=== PATIENT | female | born 1990 | race African-American/Black ===

== ENCOUNTER 2019-11-13 10:48 | Emergency (ER) | payer SELFPAY ==
--- NOTE | 2019-11-13 11:21 | ER Document Report ---
ED Medical Screen (RME) - General Stated Complaint: VAGINAL BLEEDING Time Seen by Provider: 11/13/19 11:16 Mode of Arrival: Ambulatory Information source: Patient Notes: Patient presents complaining of irregular vaginal bleeding for the past 2 weeks with lower pelvic cramping. Patient states the pain will occasionally radiate around to her back. Patient denies any urinary symptoms. Patient denies any nausea vomiting or diarrhea. Patient denies any lightheadedness. Patient is uncertain if she may be . Patient does report recent unprotected intercourse with a new partner. I have greeted and performed a rapid initial assessment of this patient. A comprehensive ED assessment and evaluation of the patient, analysis of test results and completion of the medical decision making process will be conducted by additional ED providers. Physical Exam - Vital signs Vitals: Temp Pulse Resp BP Pulse Ox 97.6 F 80 16 126/70 H 99 11/13/19 10:57 11/13/19 10:57 11/13/19 10:57 11/13/19 10:57 11/13/19 10:57 - General General appearance: Appears well, Alert Notes: Lower pelvic tenderness Course - Vital Signs Vital signs: Temp Pulse Resp BP Pulse Ox 97.6 F 80 16 126/70 H 99 11/13/19 10:57 11/13/19 10:57 11/13/19 10:57 11/13/19 10:57 11/13/19 10:57
[2019-11-13 11:45] LABS: ABSOLUTE BASOPHILS # (AUTO) 0.1 10^3/uL (0.0-0.2); ABSOLUTE EOSINOPHILS # (AUTO) 0.6 10^3/uL (0.0-0.6); ABSOLUTE MONOCYTES (AUTO) 0.4 10^3/uL (0.1-1.4); ABSOLUTE NEUT (AUTO) 3.4 10^3/uL (1.7-8.2); BASOPHILS % (AUTO) 0.9 % (0-2); EOSINOPHILS % (AUTO) 9.4 % (0-6); HEMATOCRIT 40.1 % (36.0-47.0); HEMOGLOBIN 13.3 g/dL (12.0-15.5); LYMPHOCYTES % (AUTO) 30.7 % (13-45); MEAN CORPUSCULAR HEMOGLOBIN 26.9 pg (27.0-33.4); MEAN CORPUSCULAR HGB CONC 33.2 g/dL (32.0-36.0); MEAN CORPUSCULAR VOLUME 81 fl (80-97); PLATELET COUNT 205 10^3/uL (150-450); RED BLOOD COUNT 4.94 10^6/uL (3.72-5.28); TOTAL CELLS COUNTED % (AUTO) 100 %; WHITE BLOOD COUNT 6.4 10^3/uL (4.0-10.5)
[2019-11-13 12:07] LABS: ALBUMIN 4.3 g/dL (3.5-5.0); ALKALINE PHOSPHATASE 64 U/L (38-126); ANION GAP 7 (5-19); ASPARTATE AMINO TRANSFERASE 19 U/L (14-36); BILIRUBIN,DIRECT 0.3 mg/dL (0.0-0.4); BILIRUBIN,TOTAL 0.7 mg/dL (0.2-1.3); BLOOD UREA NITROGEN 9 mg/dL (7-20); CALCIUM 9.3 mg/dL (8.4-10.2); CARBON DIOXIDE 26 mmol/L (22-30); CHLORIDE 106 mmol/L (98-107); GLUCOSE 119 mg/dL (75-110); POTASSIUM 4.1 mmol/L (3.6-5.0); TOTAL PROTEIN 7.6 g/dL (6.3-8.2)
--- NOTE | 2019-11-13 13:50 | ER Document Report ---
ED General - General Chief Complaint: Vaginal Bleeding Stated Complaint: VAGINAL BLEEDING Time Seen by Provider: 11/13/19 11:16 Primary Care Provider: KEVIN ALCANTARA [Primary Care Provider] - Follow up as needed Mode of Arrival: Ambulatory - [facility] Notes: Chief complaint: Pelvic cramping and heavy menses. History of present illness: 28-year-old 1 para 1 complaining of irregular vaginal bleeding for the past 2 weeks with lower pelvic cramping. Patient states the pain will occasionally radiate around to her back. Patient denies any urinary symptoms. Patient denies any nausea vomiting or diarrhea. Patient denies any lightheadedness. Patient is uncertain if she may be . Patient does report recent unprotected intercourse with a new partner. No contraception. No other regular medications. No primary care physician. No known allergies. - Related Data Allergies/Adverse Reactions: No Known Drug Allergies Allergy (Verified 11/13/19 11:21) Past Medical History - General Information source: Patient - Social History Smoking Status: Current Some Day Smoker Chew tobacco use (# tins/day): No Frequency of alcohol use: None Drug Abuse: None Family History: Reviewed & Not Pertinent - Medical History Medical History: Negative Surgical Hx: Negative Review of Systems - Review of Systems Notes: Constitutional: Negative for fever. HENT: Negative for sore throat. Eyes: Negative for visual changes. Cardiovascular: Negative for chest pain. Respiratory: Negative for shortness of breath. Gastrointestinal: Negative for abdominal pain, vomiting or diarrhea. Genitourinary: As per HPI. Musculoskeletal: Negative for back pain. Skin: Negative for rash. Neurological: Negative for headaches, weakness or numbness. 10 point ROS negative except as marked above and in HPI. Physical Exam - Vital signs Vitals: Temp Pulse Resp BP Pulse Ox 97.6 F 80 16 126/70 H 99 11/13/19 10:57 11/13/19 10:57 11/13/19 10:57 11/13/19 10:57 11/13/19 10:57 - Notes Notes: GENERAL: Well-developed well-nourished appearing in no acute distress. SKIN: Good turgor no rashes. HEAD: Normocephalic atraumatic. EYES: PERRLA. EOMI. Conjunctivae and sclerae clear. EARS: CANALS AND TMS CLEAR. NOSE: CLEAR. MOUTH: Moist mucosa. Good dentition. No stridor or edema. No drooling. NECK: Supple. No masses or thyromegaly. No adenopathy. Carotids 2+ without bruits. No JVD. BACK: Symmetrical without tenderness. CHEST: Respirations unlabored. Breath sounds clear and symmetrical. HEART: Regular rhythm. No murmur gallop or rub. ABDOMEN: Soft nontender without masses, organomegaly or rebound. Bowel sounds normally active. No bruits. PELVIC: Normal external genitalia and hair distribution. Small amount of blood without clots in the vaginal vault. Cervix is parous and closed without lesions. Mild diffuse tenderness on bimanual exam with no enlargement of the uterus or adnexal masses appreciated. EXTREMITIES: No edema. No calf tenderness. Cap refill less than 1.5 seconds. Dorsalis pedis and posterior tibial pulses 3+ and symmetrical. NEUROLOGICAL: GCS 15. Alert and oriented x3. Normal gait. Fluent speech. Cranial nerves II through XII intact. Sensorimotor and cerebellar normal. N ormal tone. PSYCHIATRIC: Appropriate affect. Course - Vital Signs Vital signs: Temp Pulse Resp BP Pulse Ox 97.6 F 80 16 126/70 H 99 11/13/19 10:57 11/13/19 10:57 11/13/19 10:57 11/13/19 10:57 11/13/19 10:57 - Laboratory Result Diagrams: 11/13/19 11:32 11/13/19 11:32 Laboratory results interpreted by me: 11/13/19 11/13/19 11/13/19 11:32 11:32 14:30 MCH 26.9 L RDW 16.0 H Eos % (Auto) 9.4 H Glucose 119 H Urine Blood MODERATE H Discharge - Discharge Clinical Impression: Dysfunctional uterine bleeding Condition: Stable Disposition: HOME, SELF-CARE Additional Instructions: Vaginal Bleeding "Dysfunctional uterine bleeding" is due to hormone imbalance, and is especially common at times when the normal cycle is disturbed -- whether by recent , use of control pills or hormones, or impending menopause. If the bleeding is innocent, most commonly a short course of hormones is given to restore the uterus to normal. Sometimes, the normal menstrual cycle corrects itself naturally. Sometimes, brief hormone therapy, or even a D&C is required. Your physician will advise you. Treatment for anemia may be required if bleeding is severe. You should rest and avoid intercourse until the bleeding is controlled. Call the doctor or return for re-examination if you feel faint, have increasing pain, or have a major increase in the amount of bleeding. Take prescribed medication as instructed. You may take Tylenol as needed for pain. Follow-up with referral physician within the next 1 week. Return here as needed for new or worsening symptoms: Pain that is worsening or unimproved Uncontrolled vomiting High fever or shaking chills Overall worsening Prescriptions: Medroxyprogesterone Acet [Provera 10 Mg Tablet] 10 mg PO BID 5 Days #10 tablet Referrals: MARICRUZNO [Primary Care Provider] - Follow up as needed [facility] [Provider Group] - Follow up as needed
[2019-11-13 15:04] LABS: APPEARANCE,URINE CLEAR; BILIRUBIN,URINE NEGATIVE (NEGATIVE); COLOR,URINE STRAW; GLUCOSE, URINE NEGATIVE (NEGATIVE); KETONES,URINE NEGATIVE (NEGATIVE); LEUKOCYTE ESTERASE,URINE NEGATIVE (NEGATIVE); NITRITE,URINE NEGATIVE (NEGATIVE); PROTEIN,URINE NEGATIVE (NEGATIVE); URINE SPECIFIC GRAVITY 1.011; UROBILINOGEN,URINE NEGATIVE mg/dL (<2.0)
--- NOTE | 2019-11-13 15:30 | RADIOLOGY REPORT (SQ) ---
EXAM DESCRIPTION: U/S NON-OB PELVIS TV W/O DOP IMAGES COMPLETED DATE/TIME: 11/13/2019 3:15 pm REASON FOR STUDY: DUB COMPARISON: None. TECHNIQUE: Dynamic and static grayscale images acquired of the pelvis via transvaginal approach and recorded on PACS. Additional selected color Doppler and spectral images recorded. LIMITATIONS: None. FINDINGS: UTERUS: Contour normal. No mass. ENDOMETRIAL STRIPE: No focal or generalized thickening. No masses. CERVIX: No nabothian cysts. RIGHT OVARY AND DOPPLER: Normal size. No worrisome masses. Normal arterial vascular flow without evid ence for torsion. LEFT OVARY AND DOPPLER: Normal size. No worrisome masses. Normal arterial vascular flow without evide nce for torsion. FREE FLUID: None noted. OTHER: No other significant finding. MEASUREMENTS: UTERUS: 7.6 x 4.8 x 5.4 cm ENDOMETRIAL STRIPE: 0.2 cm RIGHT OVARY: 2.2 x 2.4 x 2.1 cm LEFT OVARY: 2.5 x 1.8 x 1.7 cm IMPRESSION: NORMAL TRANSVAGINAL PELVIC ULTRASOUND. TECHNICAL DOCUMENTATION: JOB ID: [id number] [employer]- All Rights Reserved Rev-08/02 Reading location - IP/workstation name: [email or web address]
[2019-11-13 16:33] VITALS: BP 128/84
[2019-11-13 16:50] LABS: CHLAM PCR NOT DETECTED (NOT DETECT)
== END 2019-11-13 16:31 | disposition home or self-care (01) ==
LOC: ER 10:48
DX: N93.8 Other specified abnormal uterine and vaginal bleeding (principal); R10.2 Pelvic and perineal pain; F17.200 Nicotine dependence, unspecified, uncomplicated
CPT/HCPCS: 36415; 76830; 80053; 81001; 84703; 85025; 87491; 87591; 99284